=== PATIENT | female | born 1950 | race Caucasian/White ===

== ENCOUNTER 2020-01-06 13:27 | Emergency (ER) | payer MEDICARE, MEDICAID, SELFPAY ==
[2020-01-06 14:20] VITALS: BP 158/90; PULSE 68; RESP 16; TEMP 36.7; O2SAT 97
--- NOTE | 2020-01-06 14:57 | ED.EAR ---
HPI - Ear Problem General Chief complaint: Ear Stated complaint: earring back stuck in L ear Source: patient Mode of arrival: ambulatory History of Present Illness HPI Narrative: this is a 69-year-old female who presents with some the back part of her earring lodged into her left posterior ear lobe after she inadvertently dislodged the the front of the ear ring but the posterior aspect remained in the posterior left ear lobe currently there is some swelling redness and erythema with some pustular and blood next discharge. Currently no fever or chills. MD Complaint: ear pain, ear discharge and foreign body Location: left ear Duration: constant Severity: mild Relieving factors: nothing Exacerbating factors: nothing Discharge from ear: Reports yes - purulent Related Data Home Medications Medication Instructions Recorded Confirmed bupropion HCl 450 mg PO DAILY 01/06/20 01/06/20 gabapentin 300 mg PO HS 01/06/20 01/06/20 Allergies Allergy/AdvReac Type Severity Reaction Status Date / Time Sulfa (Sulfonamide Allergy Itching Verified 01/06/20 14:20 Antibiotics) indomethacin AdvReac Unknown Verified 01/06/20 14:20 NSAIDS (Non-Steroidal AdvReac Unknown Verified 01/06/20 14:20 Anti-Inflamma tramadol AdvReac Unknown Verified 01/06/20 14:20 Review of Systems Review of Systems: All systems reviewed & are unremarkable except as noted in HPI and below PMFSH Past Medical History Medical History History of neuropathy Exam Const: General: no acute distress Orientation/consciousness: patient oriented x3 HENMT: Head: normal to inspection Eyes: Conjunctivae: conjunctivae normal Pupils: Equal, round and reactive pupils present Neck: Neck: normal visual inspection Chest: Chest palpation & inspection: normal inspection of the chest Resp: Effort & Inspection: normal respiratory effort Auscultation: clear to auscultation bilaterally GI: Auscultation: normal bowel sounds Skin: Other: posterior aspect of the earring lodge into posterior left ear lobe with some some mild drainage and erythema and swelling. Course Course Emergency Course: The earring was removed with forceps and drainage was cultured. Vital Signs Vital signs: Vital Signs Temperature 36.7 C 01/06/20 14:20 Pulse Rate 68 01/06/20 14:20 Respiratory Rate 16 01/06/20 14:20 Blood Pressure 158/90 H 01/06/20 14:20 Pulse Oximetry 97 01/06/20 14:20 Temperature 36.7 C 01/06/20 14:20 Pulse Rate 68 01/06/20 14:20 Respiratory Rate 16 01/06/20 14:20 Blood Pressure 158/90 H 01/06/20 14:20 Pulse Oximetry 97 01/06/20 14:20 Procedures FB Removal Ear Foreign Body #1: Foreign Body Removal Date: 01/06/20 Foreign Body Removal Time: 15:01 Location: ear canal (L) ( Posterior ear ring lodged in posterior left ear lobe that was removed) Medical Decision Making Vital Signs Vital Signs: Vital Signs Temperature 36.7 C 01/06/20 14:20 Pulse Rate 68 01/06/20 14:20 Respiratory Rate 16 01/06/20 14:20 Blood Pressure 158/90 H 01/06/20 14:20 Pulse Oximetry 97 01/06/20 14:20 Temperature 36.7 C 01/06/20 14:20 Pulse Rate 68 01/06/20 14:20 Respiratory Rate 16 01/06/20 14:20 Blood Pressure 158/90 H 01/06/20 14:20 Pulse Oximetry 97 01/06/20 14:20 Critical Care Time Critical Care Time Critical Care Time: No Discharge Plan Discharge Clinical Impression: Foreign body entering through skin Qualifiers: Encounter type: initial encounter Qualified Code(s): W45.8XXA - Other foreign body or object entering through skin, initial encounter Patient Disposition: Home, Self-Care Condition: Stable Instructions: Antibiotic Form Additional Instructions: take medicine as prescribed, can use Neosporin to affected area daily x4 days, and follow with primary care physician if symptoms persist or worsen. Prescriptions: N
[2020-01-06 15:10] VITALS: RESP 16
== END 2020-01-06 15:10 | disposition home or self-care (01) ==
PROVIDERS: Emergency Provider Emergency Medicine; PCP Family Medicine
DX: S01.342A Puncture wound with foreign body of left ear, initial encounter (principal); W45.8XXA Other foreign body or object entering through skin, initial encounter
CPT/HCPCS: 87070; 87077; 87186; 87205; 99283

== ENCOUNTER 2020-03-24 18:11 | Emergency (ER) | payer MEDICARE, MEDICAID, SELFPAY ==
--- NOTE | ~2020-03-24 | CT_ITS ---
EXAMINATION: CT brain wo con INDICATION: Head injury COMPARISON: None TECHNIQUE: Standard unenhanced head CT. The dose-length product (DLP) was 605.33 mGy-cm. The mA was a djusted according to patient size. Iterative reconstruction technique was employed. FINDINGS: A frontal scalp hematoma is present. There is no intracranial hemorrhage, acute infarction, or abnormal mass lesion. The ventricles are normal. There is no abnormal mass effect or midline shif t. The johnson-white matter differentiation is normal. The basal cisterns are patent. The orbits are nor mal. There is moderate opacification of the maxillary sinuses. IMPRESSION: 1. No acute intracranial abnormality. Reviewed, dictated and finalized at location A. [employer]
[2020-03-24 18:15] VITALS: BP 120/92; PULSE 68; RESP 14; TEMP 36.6; O2SAT 97
--- NOTE | 2020-03-24 18:54 | ED_ITS ---
HPI - Wound/Laceration General Chief Complaint: Wound/Laceration Stated Complaint: face injury Time Seen by Provider: 03/24/20 18:54 Source: patient Mode of arrival: ambulatory Limitations: no limitations Related Data Home Medications Medication Instructions Recorded Confirmed albuterol sulfate [ProAir HFA] 2 puff INHALATION QID PRN 03/24/20 03/24/20 bupropion HCl 300 mg PO DAILY 03/24/20 03/24/20 cyclobenzaprine 10 mg PO HS PRN 03/24/20 03/24/20 estradiol 1 mg PO DAILY 03/24/20 03/24/20 gabapentin 300 mg PO HS 03/24/20 03/24/20 Allergies Allergy/AdvReac Type Severity Reaction Status Date / Time Sulfa (Sulfonamide Allergy Itching Verified 01/06/20 14:20 Antibiotics) indomethacin AdvReac Unknown Verified 01/06/20 14:20 NSAIDS (Non-Steroidal AdvReac Unknown Verified 01/06/20 14:20 Anti-Inflamma tramadol AdvReac Unknown Verified 01/06/20 14:20 [facility] Past Medical History Medical History (Updated 01/07/20 @ 00:00 by Background Jason) History of neuropathy Course Vital Signs Vital signs: Vital Signs Temperature 36.6 C 03/24/20 18:15 Pulse Rate 68 03/24/20 18:15 Respiratory Rate 14 03/24/20 18:15 Blood Pressure 120/92 H 03/24/20 18:15 Pulse Oximetry 97 03/24/20 18:15 Temperature 36.6 C 03/24/20 18:15 Pulse Rate 68 03/24/20 18:15 Respiratory Rate 14 03/24/20 18:15 Blood Pressure 120/92 H 03/24/20 18:15 Pulse Oximetry 97 03/24/20 18:15 Discharge Plan Discharge Prescriptions: No Action cyclobenzaprine 10 mg Tablet 10 mg PO HS PRN (Reason: Pain) RF: 0 estradiol 1 mg tablet 1 mg PO DAILY RF: 0 gabapentin 300 mg capsule 300 mg PO HS RF: 0 albuterol sulfate [ProAir HFA] 90 mcg/actuation Hfa Aerosol Inhaler 2 puff INHALATION QID PRN (Reason: Shortness Of Breath) RF: 0 bupropion HCl 300 mg tablet extended release 24 hr 300 mg PO DAILY RF: 0
--- NOTE | 2020-03-24 19:05 | ED.HEATRA ---
HPI - Head Injury General Chief complaint: Wound/Laceration Stated complaint: face injury Time Seen by Provider: 03/24/20 18:54 Source: patient and family Mode of arrival: ambulatory Limitations: no limitations History of Present Illness HPI Narrative: 69-year-old woman comes in today complaining of bleeding from the bridge of her nose after she fell this evening. She was walking over uneven ground and tripped, falling forward onto her face. She denies loss of consciousness and denies any other injury other than some mild discomfort in her right anterior knee. She states that she had 2 alcoholic drinks this evening. she denies history of prior significant head injury, seizures, and use of blood thinners. MD Complaint: head injury Onset (ago): hour(s) (1) Mechanism of Injury: fall Place: outdoors Loss of Consciousness: no Location of injury: face Severity: mild Quality: sharp Radiation: none Other Injuries: lower extremity Associated symptoms: denies other symptoms Related Data Home Medications Medication Instructions Recorded Confirmed albuterol sulfate [ProAir HFA] 2 puff INHALATION QID PRN 03/24/20 03/24/20 bupropion HCl 300 mg PO DAILY 03/24/20 03/24/20 cyclobenzaprine 10 mg PO HS PRN 03/24/20 03/24/20 estradiol 1 mg PO DAILY 03/24/20 03/24/20 gabapentin 300 mg PO HS 03/24/20 03/24/20 Allergies Allergy/AdvReac Type Severity Reaction Status Date / Time Sulfa (Sulfonamide Allergy Itching Verified 01/06/20 14:20 Antibiotics) indomethacin AdvReac Unknown Verified 01/06/20 14:20 NSAIDS (Non-Steroidal AdvReac Unknown Verified 01/06/20 14:20 Anti-Inflamma tramadol AdvReac Unknown Verified 01/06/20 14:20 Review of Systems Constitutional: Constitutional: Denies chills and Denies fever(s) Eyes: Eyes: Denies change in vision and Denies photophobia ENT: Denies dysphagia, Denies nasal congestion and Denies sore throat Cardiovascular: Cardiovascular: Denies chest pain and Denies radiating jaw, neck or arm pain Respiratory: Respiratory: Denies cough, Denies dyspnea and Denies wheezing Gastrointestinal: Gastrointestinal: Denies abdominal pain, Denies nausea and Denies vomiting Musculoskeletal: Musculoskeletal: Reports as per HPI, Reports arthralgias and Denies joint swelling Integumentary/Breasts: Skin/Breast: Denies pruritus, Denies erythema and Denies rash Neurologic: Denies vertigo, Denies dizziness and Denies syncope Hematologic/Lymphatic: Hematologic/Lymphatic: Denies easy bleeding and Denies easy bruising Allergic/Immunologic: Allergic/Immunologic: Denies lip swelling and Denies tongue swelling PMFSH Past Medical History Medical History (Updated 03/24/20 @ 19:24 by Dong Hogan MD) Anxiety Chronic back pain Depression History of neuropathy Hypertension Surgical History Surgical History (Updated 03/24/20 @ 19:16 by Dong Hogan MD) H/O knee surgery H/O: hysterectomy History of back surgery Social History Social History (Updated 03/24/20 @ 19:17 by Dong Hogan MD) Smoking status: Current every day smoker Alcohol intake: current Substance use: never Living arrangements: with family Exam Const: General: healthy appearing and alert Orientation/consciousness: patient oriented x3 Limitations: no limitations Other: Mild acute distress HENMT: Head: normal to inspection Ears: external ears normal, TM's normal bilaterally and EAC's normal General nose exam: Normal nares present Mouth: Yes moist mucous membranes Throat: posterior oropharynx normal Other: 1.5 cm median sagittal laceration over the bridge of the nose. There is modest bleeding. She has no tenderness palpation of the nasal bones and the septum is midline and there is no bleeding from the nares or septal swelling. there are superficial abrasions over the remainder of the nose distally as well as mild abrasion on the upper lip. Eyes: Conjunctivae: conjunctivae normal Pupils: Equal
[2020-03-24 19:55] VITALS: BP 120/79; PULSE 81; RESP 14; O2SAT 99
== END 2020-03-24 19:55 | disposition home or self-care (01) ==
PROVIDERS: Emergency Provider Emergency Medicine; PCP Family Medicine
DX: S09.90XA Unspecified injury of head, initial encounter (principal); S01.21XA Laceration without foreign body of nose, initial encounter; W19.XXXA Unspecified fall, initial encounter
CPT/HCPCS: 12011; 70450; 99282; 99284

== ENCOUNTER 2020-11-02 14:04 | Outpatient (RCR) | payer MEDICARE, MEDICAID, SELFPAY ==
--- NOTE | 2020-11-02 14:40 | PTOPEVAL ---
Thank you for referring Ann Chu to [facility].? The patient is scheduled to be seen for therapy? __2__x/week for 8 visits. Please review, sign, date and return this plan of care FLORENCIO. I agree with and certify that the following plan of care is medically necessary. Referring Physician Date Admitting Provider: Attending Provider: lizeth diaz Referring Provider: *PT Outpatient Evaluation Start: 11/02/20 14:10 Freq: Status: Active Protocol: Document 11/02/20 14:00 SRIRAM (Rec: 11/02/20 14:37 [id number]) Therapy Assessment Status Assessment Status Assessment Status Evaluation Outpatient Past Medical History Respiratory History Hx Pneumonia Yes Musculoskeletal History Hx Arthritis Yes Hx Other Musculoskeletal Disorders Yes: HAND, KNEE SURGERY Reproductive History Hx Post Menopausal Yes Psychosocial History Hx Depression Yes Other History Hx Cancer Yes: UTERUS, CERXIX Evaluation Information Problem Diagnosis right foot pain, contracture of joint of right foot Onset 09/05/20 Subjective Information Pt. reports that she underwent Query Text:As Reported By Patient/ surgery for her toes on 09/05/ Family 21. Pt. reports that her toes were beginning to curl. She states that she had pins placed in the 2nd and 3rd toe. She reports she also had her calf cut to help lengthen it. She reports she is bracing the toes at night. She states that since surgery walking has become difficult. She reports her walking has become slower. She states that she walks with a limp and it is difficult to place weight through the right foot. Prior Level of Function Activity Level (Last 3 Months) Occupation retired Hand Dominance Right Activity of Daily Living Ability Independent Indoor/Home Mobility Independent Community Mobility Independent Stairs Ability Independent Functional Cognition (Planning, Shopping Independent , Taking Medications) Cooking Yes Cleaning Yes Laundry Yes Shopping Yes Driving Yes Comments Additional Prior Level of Function Pt. lives alone.
--- NOTE | 2020-12-12 06:43 | PCPTNOTE ---
Mrs. Chu attended a total of 7 treatment sessions from 11/02/20 to 11/23/20. She has failed to return to the clinic and will be discharged from our care. Refer to the pt. last Rx note for discharge status. Zeus Marley, MPT
== END 2020-11-23 09:39 | disposition home or self-care (01) ==
LOC: CHSPT 14:04
DX: M79.671 Pain in right foot (principal); M24.574 Contracture, right foot
CPT/HCPCS: 97014; 97110; 97140; 97161; G0283

== ENCOUNTER 2021-06-22 15:07 | Emergency (ER) | payer MEDICARE, MEDICAID, SELFPAY | END 2021-06-22 15:08 | disposition left against medical advice (07) | LOC: CHSED 15:11 | PROVIDERS: Emergency Provider Family Medicine; PCP Family Medicine | DX: Z04.9 Encounter for examination and observation for unspecified reason (principal) | CPT/HCPCS: 99199 ==

== ENCOUNTER 2021-07-06 19:14 | Emergency (ER) | payer MEDICARE, MEDICAID, SELFPAY ==
[2021-07-06 19:21] VITALS: BP 169/89; PULSE 73; RESP 18; TEMP 35.9; O2SAT 98
[2021-07-06] MEDS: HYDROcodone/acetaminophen (*CRX) 5-325 MG TABLET 1 TAB PO (19:59)
[2021-07-06] MEDS: AMOXICILLIN/CLAVULANATE K 875-125 MG TAB 1 TABLET PO (19:59)
[2021-07-06] MEDS: KETOROLAC 30 MG/ML VIAL (*BKC) IM (20:01)
--- NOTE | 2021-07-06 20:01 | ED.GENADULT ---
HPI - General Adult General Chief complaint: Dental/Oral Stated complaint: tooth pain Source: patient Mode of arrival: ambulatory Limitations: no limitations History of Present Illness HPI narrative: Ann is a 70F with a PMH of chronic back pain, depression and HTN that presented to the emergency department with dental pain. Her right lower molars have been getting worse for the last few days. She was unable to get into her dentist or primary care physician and was referred here. There has been no trouble swallowing, breathing and no fevers or chills. Related Data Home Medications Medication Instructions Recorded Confirmed albuterol sulfate [ProAir HFA] 2 puff INHALATION QID PRN 03/24/20 03/24/20 bupropion HCl 300 mg PO DAILY 03/24/20 03/24/20 cyclobenzaprine 10 mg PO HS PRN 03/24/20 03/24/20 estradiol 1 mg PO DAILY 03/24/20 03/24/20 gabapentin 300 mg PO HS 03/24/20 03/24/20 Allergies Allergy/AdvReac Type Severity Reaction Status Date / Time Sulfa (Sulfonamide Allergy Itching Verified 07/06/21 19:52 Antibiotics) indomethacin AdvReac Unknown Verified 07/06/21 19:52 NSAIDS (Non-Steroidal AdvReac Unknown Verified 07/06/21 19:52 Anti-Inflamma tramadol AdvReac Unknown Verified 07/06/21 19:52 Review of Systems Constitutional: Constitutional: Reports no additional constitutional complaints Eyes: Eyes: Reports no additional eye complaints ENT: Reports system reviewed and no additional complaints, except as documented Cardiovascular: Cardiovascular: Reports no additional cardiovascular complaints Respiratory: Respiratory: Reports no additional respiratory complaints Gastrointestinal: Gastrointestinal: Reports no additional gastrointestinal complaints Genitourinary: Genitourinary: Reports no additional female genitourinary complaints Musculoskeletal: Musculoskeletal: Reports no additional musculoskeletal complaints Integumentary/Breasts: Skin/Breast: Reports system reviewed and no additional complaints, except as docu Neurologic: Reports system reviewed and no additional complaints, except as documented Psychiatric: Psychiatric: Reports no additional psychiatric complaints Endocrine: Endocrine: Reports no additional endocrine complaints Hematologic/Lymphatic: Hematologic/Lymphatic: Reports no additional hematologic/lymphatic complaints Allergic/Immunologic: Allergic/Immunologic: Reports no additional allergic/immunologic complaints [facility] Past Medical History Medical History Anxiety Chronic back pain Depression History of neuropathy Hypertension Surgical History Surgical History H/O knee surgery H/O: hysterectomy History of back surgery Social History Social History Smoking status: Current every day smoker Alcohol intake: current Substance use: never Exam Const: General: no acute distress and alert Orientation/consciousness: patient oriented x3 Limitations: No altered mental status HENMT: Head: normal to inspection Mouth: Yes Normal oral and palatal mucosa present Other: Right lower molar was very TTP but had no visible abscess Eyes: Conjunctivae: conjunctivae normal Pupils: Equal, round and reactive pupils present Neck: Neck: normal visual inspection Chest: Chest palpation & inspection: normal inspection of the chest Resp: Effort & Inspection: normal respiratory effort and not tachypneic Auscultation: clear to auscultation bilaterally Cardio: Rate: regular rate GI: Inspection: non-distended GI Palp: Yes Soft to palpation, No Tenderness to palpation present (GI) and No Guarding due to palpation present (GI) Skin: General skin exam: normal color Rashes: no rashes Neuro: General: patient oriented x3 Extrem: General: normal to inspection Psych: Mental Status: mental status grossly normal Cour
== END 2021-07-06 20:27 | disposition home or self-care (01) ==
PROVIDERS: Emergency Provider Family Medicine; PCP Family Medicine
DX: K08.89 Other specified disorders of teeth and supporting structures (principal)
CPT/HCPCS: 96372; 99283; A9270; J1885

== ENCOUNTER 2021-07-07 15:03 | Emergency (ER) | payer MEDICARE, MEDICAID, SELFPAY ==
--- NOTE | 2021-07-07 15:35 | ED.DENTAL ---
HPI - Dental/Oral General Chief complaint: Dental/Oral Stated complaint: tooth pain Time Seen by Provider: 07/07/21 15:35 Source: patient Mode of arrival: ambulatory History of Present Illness HPI Narrative: 70-year-old female a history of hypertension, chronic low back pain presented to the ER yesterday for right lower jaw pain/dental pain. The patient received Toradol and [place] 10/325. She was discharged home on Augmentin and [place] 5/11666 tablets. She presents to the ER with ongoing right lower dental pain without any relief. She is scheduled to see the dentist on Friday. MD Complaint: tooth pain Location: Tooth # (30) Onset (ago): day(s) Duration: constant Severity: severe Relieving factors: nothing Exacerbating factors: cold and heat Context: history of dental caries Treatment prior to arrival: oral analgesic Related Data Home Medications Medication Instructions Recorded Confirmed albuterol sulfate [ProAir HFA] 2 puff INHALATION QID PRN 03/24/20 07/07/21 bupropion HCl 300 mg PO DAILY 03/24/20 07/07/21 cyclobenzaprine 10 mg PO HS PRN 03/24/20 07/07/21 estradiol 1 mg PO DAILY 03/24/20 07/07/21 gabapentin 300 mg PO HS 03/24/20 07/07/21 Allergies Allergy/AdvReac Type Severity Reaction Status Date / Time Sulfa (Sulfonamide Allergy Itching Verified 07/06/21 19:52 Antibiotics) indomethacin AdvReac Unknown Verified 07/06/21 19:52 naproxen AdvReac Unknown Verified 07/07/21 15:43 tramadol AdvReac Unknown Verified 07/06/21 19:52 Review of Systems Review of Systems: All systems reviewed & are unremarkable except as noted in HPI and below Constitutional: Constitutional: Reports as per HPI and Reports no additional constitutional complaints Eyes: Eyes: Reports as per HPI and Reports no additional eye complaints ENT: Reports system reviewed and no additional complaints, except as documented Comments: Extensive dental caries. Right lower jaw pain Cardiovascular: Cardiovascular: Reports as per HPI and Reports no additional cardiovascular complaints Respiratory: Respiratory: Reports as per HPI and Reports no additional respiratory complaints Gastrointestinal: Gastrointestinal: Reports as per HPI and Reports no additional gastrointestinal complaints Genitourinary: Genitourinary: Reports no additional female genitourinary complaints and Reports as per HPI Musculoskeletal: Musculoskeletal: Reports no additional musculoskeletal complaints and Reports as per HPI Comments: status post right big toe surgery with ongoing pain Integumentary/Breasts: Skin/Breast: Reports system reviewed and no additional complaints, except as docu Neurologic: Reports system reviewed and no additional complaints, except as documented and Reports as per HPI Psychiatric: Psychiatric: Reports no additional psychiatric complaints and Reports as per HPI Endocrine: Endocrine: Reports no additional endocrine complaints Hematologic/Lymphatic: Hematologic/Lymphatic: Reports no additional hematologic/lymphatic complaints Allergic/Immunologic: Allergic/Immunologic: Reports no additional allergic/immunologic complaints PMFSH Past Medical History Medical History Anxiety Chronic back pain Depression History of neuropathy Hypertension Surgical History Surgical History H/O knee surgery H/O: hysterectomy History of back surgery Social History Social History Smoking status: Current every day smoker Alcohol intake: current Substance use: never Exam Const: General: no acute distress and alert Orientation/consciousness: patient oriented x3 HENMT: Head: normal to inspection Other: Number 30 is carious with dental filling. Tooth is tender on palpation. Extensive dental caries involving all molars on both sides and upper and lower. Eyes: Conjunctivae:
[2021-07-07 15:45] VITALS: BP 138/84; PULSE 65; RESP 16; TEMP 36.3
[2021-07-07] MEDS: HYDROcodone/acetaminophen (*CRX) 10-325 MG TABLET 1 TAB PO (16:00)
--- NOTE | 2021-07-07 16:01 | PC.NURSE ---
RN medicated pt per ERP order and was preparing for discharge when pt asks about toradol shot. Pt informed that ERP stated he is not comfortable giving pt toradol since she has an allergy to naproxen. Pt states that she was given toradol yesterday. Pt informed that ERP is aware of that, but did not order toradol at this time. Pt and visitor very upset, wanting to speak with ERP again. ERP aware.
[2021-07-07 16:10] VITALS: BP 159/99; PULSE 64; RESP 16; O2SAT 96
== END 2021-07-07 16:12 | disposition home or self-care (01) ==
PROVIDERS: Emergency Provider Internal Medicine Critical Care Medicine; PCP Family Medicine
DX: K08.89 Other specified disorders of teeth and supporting structures (principal); K02.9 Dental caries, unspecified
CPT/HCPCS: 99283; A9270

== ENCOUNTER 2021-11-13 23:12 | Emergency (ER) | payer MEDICARE, MEDICAID, SELFPAY ==
[2021-11-13 23:12] VITALS: BP 136/79; PULSE 67; RESP 16; TEMP 36.6; O2SAT 98
--- NOTE | 2021-11-13 23:31 | ED.SKABFB ---
HPI - Skin/Abscess/Foreign Bdy General Stated complaint: wasp sting Time Seen by Provider: 11/13/21 23:31 Source: patient History of Present Illness HPI narrative: 70-year-old female with a history of anxiety /depression, hypertension, chronic back pain presented to the ER -- multiple wasp bites on the back of her right hand at noon today. she has had a prior history of bee stings without any major allergic reaction. -- The patient has swelling over the back of right hand along with itching. No shortness of breath, tongue or throat swelling, abdominal pain, generalized skin rash or lightheadedness. Patient is hemodynamically stable. MD complaint: rash Onset (ago): hour(s) ( 11 hours ago) Tetanus up to date: no Location: R hand Severity: mild Quality: pruritic Pain Consistency: constant Relieving factors: none Exacerbating factors: none Associated symptoms: denies other symptoms Treatments prior to arrival: Benadryl Related Data Home Medications Medication Instructions Recorded Confirmed albuterol sulfate 90 mcg/actuation 2 puff inhalation QID PRN 03/24/20 07/07/21 aerosol inhaler (ProAir HFA) Shortness Of Breath bupropion HCl 300 mg 24 hr tablet, 300 mg PO DAILY 03/24/20 07/07/21 extended release cyclobenzaprine 10 mg tablet 10 mg PO HS PRN Pain 03/24/20 07/07/21 estradiol 1 mg tablet 1 mg PO DAILY 03/24/20 07/07/21 gabapentin 300 mg capsule 300 mg PO HS 03/24/20 07/07/21 Allergies Allergy/AdvReac Type Severity Reaction Status Date / Time Sulfa (Sulfonamide Allergy Itching Verified 07/06/21 19:52 Antibiotics) indomethacin AdvReac Unknown Verified 07/06/21 19:52 naproxen AdvReac Unknown Verified 07/07/21 15:43 tramadol AdvReac Unknown Verified 07/06/21 19:52 Review of Systems Review of Systems: All systems reviewed & are unremarkable except as noted in HPI and below Constitutional: Constitutional: Reports as per HPI and Reports no additional constitutional complaints Eyes: Eyes: Reports as per HPI and Reports no additional eye complaints ENT: Reports system reviewed and no additional complaints, except as documented and Reports as per HPI Cardiovascular: Cardiovascular: Reports as per HPI and Reports no additional cardiovascular complaints Respiratory: Respiratory: Reports as per HPI and Reports no additional respiratory complaints Gastrointestinal: Gastrointestinal: Reports as per HPI and Reports no additional gastrointestinal complaints Genitourinary: Genitourinary: Reports no additional female genitourinary complaints and Reports as per HPI Musculoskeletal: Musculoskeletal: Reports no additional musculoskeletal complaints and Reports as per HPI Integumentary/Breasts: Comments: redness over the back of her right hand with itching Neurologic: Reports system reviewed and no additional complaints, except as documented and Reports as per HPI Psychiatric: Psychiatric: Reports no additional psychiatric complaints and Reports as per HPI Endocrine: Endocrine: Reports no additional endocrine complaints and Reports as per HPI Hematologic/Lymphatic: Hematologic/Lymphatic: Reports no additional hematologic/lymphatic complaints and Reports as per HPI Allergic/Immunologic: Allergic/Immunologic: Reports no additional allergic/immunologic complaints and Reports as per HPI PMFSH Past Medical History Medical History Anxiety Chronic back pain Depression History of neuropathy Hypertension Surgical History Surgical History H/O knee surgery H/O: hysterectomy History of back surgery Social History Social History Smoking status: Current every day smoker Alcohol intake: current Substance use: never Exam Const: General: no acute distress Orientation/consciousness: patient oriented x3 Limitations: no limitations [facility]
[2021-11-14 00:16] VITALS: BP 135/69; PULSE 60; RESP 16; O2SAT 96
[2021-11-14] MEDS: methylPREDNISolone SOD SUCC 125 MG VIAL IM (00:16)
== END 2021-11-14 00:21 | disposition home or self-care (01) ==
PROVIDERS: Emergency Provider Internal Medicine Critical Care Medicine
DX: T63.461A Toxic effect of venom of wasps, accidental (unintentional), initial encounter (principal); T78.49XA Other allergy, initial encounter
CPT/HCPCS: 96372; 99283; J2930

== ENCOUNTER 2022-05-08 13:52 | Emergency (ER) | payer MEDICARE, MEDICAID, SELFPAY ==
[2022-05-08 13:53] VITALS: BP 153/71; PULSE 70; RESP 16; TEMP 36.8; O2SAT 100
--- NOTE | 2022-05-08 14:05 | ED.GENADULT ---
HPI - General Adult General Chief complaint: Nausea/Vomiting/Diarrhea Stated complaint: dehydration Time Seen by Provider: 05/08/22 13:54 Source: patient and RN notes reviewed Mode of arrival: ambulatory Limitations: no limitations History of Present Illness HPI narrative: patient states that yesterday she had some vomiting. She has been having symptoms for about 3 days of nausea. She has not vomited today. She has been drinking fluids today and keeping them down. She urinated today. She thinks that she is dehydrated because change in her skin turgor. She said that she read online that if she pulls up her skin and it does not go back down that she is dehydrated. She also states that her skin has been itchy for about a week and she has used multiple lotions and creams but it still remains dry and she usually has oily skin. She denies any sore throat, cough, fever chills, diarrhea. complaint: Possible dehydration Onset (ago): day(s) (3) Severity: mild Associated symptoms: denies other symptoms Treatments prior to arrival: none Related Data Home Medications Medication Instructions Recorded Confirmed albuterol sulfate 90 mcg/actuation 2 puff inhalation QID PRN 03/24/20 07/07/21 aerosol inhaler (ProAir HFA) Shortness Of Breath bupropion HCl 300 mg 24 hr tablet, 300 mg PO DAILY 03/24/20 07/07/21 extended release estradiol 1 mg tablet 1 mg PO DAILY 03/24/20 07/07/21 gabapentin 300 mg capsule 300 mg PO HS 03/24/20 07/07/21 lorazepam 0.5 mg tablet 0.5 mg PO DIRECTED PRN Anxiety 05/08/22 05/08/22 Allergies Allergy/AdvReac Type Severity Reaction Status Date / Time Sulfa (Sulfonamide Allergy Itching Verified 11/14/21 00:22 Antibiotics) indomethacin AdvReac Unknown Verified 11/14/21 00:22 naproxen AdvReac Unknown Verified 11/14/21 00:22 tramadol AdvReac Unknown Verified 11/14/21 00:22 Review of Systems Review of Systems: All systems reviewed & are unremarkable except as noted in HPI and below PMFSH Past Medical History Medical History Anxiety Chronic back pain Depression History of neuropathy Hypertension Surgical History Surgical History H/O knee surgery H/O: hysterectomy History of back surgery Social History Social History Smoking status: Current every day smoker Alcohol intake: current Substance use: never Living arrangements: with family Exam Const: General: healthy appearing, no acute distress and alert Nutritional Appearance: well nourished Orientation/consciousness: patient oriented x3 Limitations: no limitations HENMT: Head: normal to inspection Ears: external ears normal Face/Nose/Sinus: Normal external nose present Face and sinus: normal facial exam Mouth: Yes moist mucous membranes Eyes: Conjunctivae: conjunctivae normal Pupils: Equal, round and reactive pupils present EOM: EOMs intact bilaterally Neck: Neck: normal visual inspection Resp: Effort & Inspection: normal respiratory effort Auscultation: clear to auscultation bilaterally Cardio: Rate: regular rate Rhythm: regular rhythm GI: GI Palp: Yes Soft to palpation and No Tenderness to palpation present (GI) Auscultation: normal bowel sounds Back/Spine/Pelvis: Cervical Spine: cervical ROM normal Thoracic/Lumbar Spine: thoraco-lumbar ROM normal Skin: General skin exam: normal color, elasticity normal and turgor normal Rashes: no rashes Neuro: General: patient oriented x3, moves all extremities, no focal motor deficits and CN's II-XI intact bilaterally Speech: normal speech Gait exam (Neuro): Normal gait present Extrem: General: normal to inspection and no clubbing, cyanosis or edema Psych: Mental Status: mental status grossly normal Affect: Anxious affect present Attitude: cooperative Course Vital Signs Vital signs: Vital Signs Tem
[2022-05-08 14:20] LABS: Basophils Absolute Auto 0.04 K/mm3 (0.00-0.10); Basophils Percent Auto 0.7 % (0.0-1.0); Eosinophils Absolute Auto 0.09 K/mm3 (0.02-0.50); Eosinophils Percent Auto 1.7 % (1.0-6.0); Hematocrit 38.8 % (35.0-42.0); Hemoglobin 12.8 g/dL (11.7-13.8); Immature Granulocyte Absolute 0.01 K/mm3 (0.00-0.00); Immature Granulocyte Percent A 0.2 % (0.0-0.0); Lymphocytes Absolute Auto 1.93 K/mm3 (1.10-4.50); Lymphocytes Percent Auto 35.5 % (18.0-42.0); Mean Corpuscular Hemoglobin 29.2 pg (27.0-31.0); Mean Corpuscular Volume 88.6 fL (78.0-102.0); Mean Platelet Volume 9.6 fl (9.2-11.8); Monocytes Absolute Auto 0.49 K/mm3 (0.10-0.90); Neutrophils Absolute Auto 2.9 K/mm3 (1.7-7.2); Neutrophils Percent Auto 52.9 % (50.0-70.0); Platelet Count Result 349 K/mm3 (150-420); Red Blood Count 4.38 M/mm3 (4.20-5.40); Red Cell Distribution Width 11.9 % (11.6-14.4); White Blood Count 5.4 K/mm3 (4.8-10.8)
--- NOTE | 2022-05-08 14:23 | PC.NURSE ---
RN in room with dr morrow during eval.
[2022-05-08 14:35] LABS: Alanine Aminotransferase 25 U/L (14-59); Albumin Level 3.8 g/dL (3.4-5.0); Alkaline Phosphatase 70 U/L (46-116); Anion Gap 9 mmol/L (8-16); Aspartate Amino Transferase 15 U/L (15-37); Bilirubin,Total 0.3 mg/dL (0.00-1.00); Blood Urea Nitrogen 17 mg/dL (7-18); Carbon Dioxide 28 mmol/L (21-32); Chloride 102 mmol/L (98-108); Estimated CRCL calculation 35 ml/min; Estimated Glomerular Filt Rate 48; Glucose 111 mg/dL (70-99); Magnesium 1.8 mg/dL (1.8-2.4); Osmolality Calculated 290 mOsm/kg (285-295); Sodium 139 mmol/L (136-145); Total Protein 7.1 g/dL (6.4-8.2)
[2022-05-08 14:55] LABS: Influenza A QL RT-PCR Negative (Negative); Influenza B QL RT-PCR Negative (Negative); SARS-CoV-2 RNA PCR Negative (Negative)
[2022-05-08 15:12] VITALS: BP 123/70; PULSE 68; RESP 16; TEMP 36.7; O2SAT 97
== END 2022-05-08 15:15 | disposition home or self-care (01) ==
PROVIDERS: Emergency Provider Emergency Medicine; PCP Family Medicine
DX: A08.4 Viral intestinal infection, unspecified (principal); I10 Essential (primary) hypertension; F41.9 Anxiety disorder, unspecified; F32.A Depression, unspecified; F17.200 Nicotine dependence, unspecified, uncomplicated; Z20.822 Contact with and (suspected) exposure to COVID-19
CPT/HCPCS: 36415; 80053; 83735; 85025; 87502; 99283; U0003; U0005

== ENCOUNTER 2022-10-10 17:01 | Emergency (ER) | payer MEDICARE, MEDICAID, SELFPAY ==
[2022-10-10 17:01] VITALS: BP 131/78; PULSE 60; RESP 17; TEMP 36.9; O2SAT 97
--- NOTE | 2022-10-10 17:16 | ED.WOUNDLAC ---
HPI - Wound/Laceration General Chief Complaint: Wound/Laceration Stated Complaint: wasp sting Time Seen by Provider: 10/10/22 17:15 Source: patient and family Mode of arrival: ambulatory Limitations: no limitations History of Present Illness HPI narrative: this is a 71-year-old female that presents after she was stung by a wasp yesterday her right hand anterior surface as punctate lesion with swelling and inflammation with no anaphylactic reaction no shortness of breath no audible wheezing does have some nausea with no vomiting no abdominal pain no fever chills. Onset (ago): day(s) Extremity Location: Right: hand ( swelling) Patient tetanus UTD: No Related Data Home Medications Medication Instructions Recorded Confirmed albuterol sulfate 90 mcg/actuation 2 puff inhalation QID PRN 03/24/20 05/08/22 aerosol inhaler (ProAir HFA) Shortness Of Breath bupropion HCl 300 mg 24 hr tablet, 450 mg PO DAILY 03/24/20 05/08/22 extended release estradiol 1 mg tablet 1 mg PO DAILY 03/24/20 05/08/22 gabapentin 300 mg capsule 300 mg PO HS 03/24/20 05/08/22 lorazepam 0.5 mg tablet 0.5 mg PO DIRECTED PRN Anxiety 05/08/22 05/08/22 Allergies Allergy/AdvReac Type Severity Reaction Status Date / Time Sulfa (Sulfonamide Allergy Itching Verified 11/14/21 00:22 Antibiotics) indomethacin AdvReac Unknown Verified 11/14/21 00:22 naproxen AdvReac Unknown Verified 11/14/21 00:22 tramadol AdvReac Unknown Verified 11/14/21 00:22 Review of Systems Review of Systems: All systems reviewed & are unremarkable except as noted in HPI and below PMFSH Past Medical History Medical History Anxiety Chronic back pain Depression History of neuropathy Hypertension Surgical History Surgical History H/O knee surgery H/O: hysterectomy History of back surgery Social History Social History Smoking status: Current every day smoker Alcohol intake: current Substance use: never Living arrangements: with family Exam Const: General: healthy appearing Nutritional Appearance: well nourished Orientation/consciousness: patient oriented x3 Limitations: no limitations Eyes: Conjunctivae: conjunctivae normal Pupils: Equal, round and reactive pupils present Neck: Neck: normal visual inspection Chest: Chest palpation & inspection: normal inspection of the chest Resp: Effort & Inspection: normal respiratory effort Auscultation: clear to auscultation bilaterally Cardio: Rate: regular rate Rhythm: regular rhythm GI: GI Palp: Yes Soft to palpation Skin: Wounds: wounds noted Other: Swelling anterior right hand with a punctate lesion Extrem: General: edema Psych: Mental Status: mental status grossly normal Affect: normal affect Course Course Emergency Course: patient received dose of Depo-Medrol, updated with some her tetanus and patient received Zofran for nausea. Otherwise there is no shortness of breath no audible wheezing no abdominal pain. Critical Care Time Critical Care Time Critical Care Time: No Discharge Plan Discharge Clinical Impression: Insect bite Patient Disposition: Home, Self-Care Condition: Stable Instructions: Antibiotic Form, Insect Bite or Sting (ED) Additional Instructions: take medicine as prescribed and follow up with primary if symptoms persist or worsen. Prescriptions: New methylprednisolone [Medrol (Brennan)] 4 mg tablets,dose pack See Rx Instructions .ROUTE .COMPLEX Qty: 21 0RF Rx Instructions: orally per package directions epinephrine [EpiPen 2-Brennan] 0.3 mg/0.3 mL auto-injector 0.3 mg IM ONCE Qty: 2 0RF Rx Instructions: as a single dose; may repeat once ondansetron 4 mg tablet,disintegrating 4 mg PO Q6H PRN (Reason: nausea and vomiting) Qty: 10 0RF No Action estradiol
[2022-10-10] MEDS: TETANUS,DIPHTHERIA,AC PERTUSSIS ADULT 0.5 ML (ADACEL) IM (17:23)
[2022-10-10] MEDS: ONDANSETRON HCL ODT 4 MG TABLET PO (17:23)
[2022-10-10] MEDS: methylPREDNISolone ACETATE 40 MG/ML VIAL 80 MG IM (17:23)
[2022-10-10 18:02] VITALS: BP 131/78; PULSE 60; RESP 17; TEMP 36.9; O2SAT 97
== END 2022-10-10 18:02 | disposition home or self-care (01) ==
PROVIDERS: Emergency Provider Emergency Medicine; PCP Family Medicine
DX: T63.461A Toxic effect of venom of wasps, accidental (unintentional), initial encounter (principal); I10 Essential (primary) hypertension; F32.A Depression, unspecified; F41.9 Anxiety disorder, unspecified; F17.200 Nicotine dependence, unspecified, uncomplicated; Z23 Encounter for immunization
CPT/HCPCS: 90471; 90715; 96372; 99283; A9270; J1030

== ENCOUNTER 2024-11-01 17:07 | Emergency (ER) | payer MEDICARE, MEDICAID, SELFPAY ==
[2024-11-01 17:07] VITALS: BP 153/88; PULSE 66; RESP 18; TEMP 36.9; O2SAT 98
--- NOTE | 2024-11-01 17:21 | ED_ITS ---
HPI - Skin/Abscess/Foreign Bdy General Chief complaint: Skin/Abscess/Foreign Body Stated complaint: rash Time Seen by Provider: 11/01/24 17:21 Source: patient Mode of arrival: ambulatory Limitations: no limitations History of Present Illness HPI narrative: Patient is a 73-year-old female with an insect bite and allergic reaction over the past day. She had a home health nurse notice the rash and center to come in in case it was scabies. The rash is on her chest and left neck. She is having pruritus. MD complaint: insect bite/sting Onset (ago): day(s) ( Two) Location: neck ( left) and chest ( left) Severity: moderate Severity scale (1-10): 3 Quality: pruritic Pain Consistency: constant Relieving factors: none Exacerbating factors: none Context: other ( patient had a suspect insect bite and pruritus in the past day ; she has been having pruritus and a flared rash on her chest and neck; she is worried about scabies) Associated symptoms: denies other symptoms Treatments prior to arrival: none Related Data Home Medications ?Medication ?Instructions ?Recorded ?Confirmed ?Last Taken ?Type albuterol sulfate 90 mcg/actuation 2 puff inhalation QID PRN 03/24/20 10/10/22 Unknown History aerosol inhaler (ProAir HFA) Shortness Of Breath bupropion HCl 300 mg 24 hr tablet, 450 mg PO DAILY 03/24/20 10/10/22 Unknown History extended release estradiol 1 mg tablet 1 mg PO DAILY 03/24/20 10/10/22 Unknown History gabapentin 300 mg capsule 300 mg PO HS 03/24/20 10/10/22 Unknown History lorazepam 0.5 mg tablet 0.5 mg PO DIRECTED PRN Anxiety 05/08/22 10/10/22 Unknown History Allergies Allergy/AdvReac Type Severity Reaction Status Date / Time Sulfa (Sulfonamide Allergy Itching Verified 11/01/24 17:13 Antibiotics) indomethacin AdvReac Unknown Verified 11/01/24 17:13 naproxen AdvReac Unknown Verified 11/01/24 17:13 tramadol AdvReac Unknown Verified 11/01/24 17:13 Review of Systems Review of Systems: All systems reviewed & are unremarkable except as noted in HPI and below Constitutional: Constitutional: Reports no additional constitutional complaints Eyes: Eyes: Reports no additional eye complaints ENT: Reports system reviewed and no additional complaints, except as documented Cardiovascular: Cardiovascular: Reports no additional cardiovascular complaints Respiratory: Respiratory: Reports no additional respiratory complaints Gastrointestinal: Gastrointestinal: Reports no additional gastrointestinal complaints Genitourinary: Genitourinary: Reports no additional female genitourinary complaints Musculoskeletal: Musculoskeletal: Reports no additional musculoskeletal complaints Integumentary/Breasts: Skin/Breast: Reports system reviewed and no additional complaints, except as docu Neurologic: Reports system reviewed and no additional complaints, except as documented Psychiatric: Psychiatric: Reports no additional psychiatric complaints Endocrine: Endocrine: Reports no additional endocrine complaints Hematologic/Lymphatic: Hematologic/Lymphatic: Reports no additional hematologic/lymphatic complaints Allergic/Immunologic: Allergic/Immunologic: Reports no additional allergic/immunologic complaints PMFSH Past Medical History Medical History Hypertension Chronic back pain Depression Anxiety History of neuropathy Surgical History Surgical History H/O knee surgery History of back surgery H/O: hysterectomy Social History Social History Smoking status: Current every day smoker Alcohol intake: current Substance use: never Living arrangements: with family Exam Const: General: healthy appearing Nutritional Appearance: well nourished Orientation/consciousness: patient oriented x3 HENMT: Head: normal to inspection Ears: external ears normal Face/Nose/Sinus: Normal external nose present Eyes: Conjunctivae: conjunctivae normal Pupils: Equal, round and reactive pupils present EOM: EOMs intact bilaterally Neck: Neck: normal visual inspection Chest: Chest palpation & inspection: normal inspection of the chest Resp: Effort & Inspection: normal respiratory effort and not labored Auscultation: clear to auscultation bilaterally and no crackles Cardio: Rate: regular rate Rhythm: regular rhythm Heart sounds: no murmurs GI: Inspection: non-distended Auscultation: normal bowel sounds and bowel sounds present : General: Yes bladder normal to palpation Back/Spine/Pelvis: Back: no CVA tenderness Skin: General skin exam: normal color Rashes: rash noted Wounds: no wounds Other: left chest has 3 distinct nodular / erythema hives and left neck has similar 3 areas; these are not scabies in nature; we discussed bedbugs but she said she has recently monitored for that and she does not feel bedbugs are likely Neuro: General: patient oriented x3 and moves all extremities Cranial nerves: Yes Nystagmus not present Speech: normal speech Extrem: General: normal to inspection Psych: Mental Status: mental status grossly normal Affect: normal affect Attitude: cooperative Course Vital Signs Vital signs: Vital Signs Temperature 36.9 C 11/01/24 17:07 Pulse Rate 66 11/01/24 17:07 Respiratory Rate 18 11/01/24 17:07 Blood Pressure 153/88 H 11/01/24 17:07 Pulse Oximetry 98 11/01/24 17:07 Oxygen Delivery Room Air 11/01/24 17:07 Temperature 36.9 C 11/01/24 17:07 Pulse Rate 66 11/01/24 17:07 Respiratory Rate 18 11/01/24 17:07 Blood Pressure 153/88 H 11/01/24 17:07 Pulse Oximetry 98 11/01/24 17:07 Oxygen Delivery Room Air 11/01/24 17:07 MDM - Skin/Abscess/Foreign Bdy MDM Narrative Medical decision making narrative: patient is a 73-year-old female with left chest and left neck rash. Reassurance. Desonide cream and hydroxyzine. Discharge Plan Discharge Clinical Impression: Pruritic dermatitis Insect bite Qualifiers: Encounter type: initial encounter Site of insect bite: thoracic wall Front or b ack of thoracic wall: front Thoracic wall location detail: left Qualified Code(s): S20.362A - Insect bite (nonvenomous) of left front wall of thorax, initial encounter; W57.XXXA - Bitten or stung by nonvenomous insect and other nonvenomous arthropods, initial encounter Patient Disposition: Home Condition: Stable Instructions: Insect Bite or Sting (ED), General Allergic Reaction (ED) Patient Language: Ghanaian Prescriptions: New desonide 0.05 % cream 1 applic topical BID PRN (Reason: skin irritation) Qty: 15 0RF hydroxyzine HCl 25 mg tablet 25 mg PO BID PRN (Reason: itching) Qty: 20 0RF No Action estradiol 1 mg tablet 1 mg PO DAILY gabapentin 300 mg capsule 300 mg PO HS albuterol sulfate [ProAir HFA] 90 mcg/actuation Hfa Aerosol Inhaler 2 puff INHALATION QID PRN (Reason: Shortness Of Breath) bupropion HCl 300 mg tablet extended release 24 hr 450 mg PO DAILY hydrocodone-acetaminophen 5-325 mg tablet 1 tablet PO Q8H PRN (Reason: pain) Qty: 10 0RF lorazepam 0.5 mg tablet 0.5 mg PO DIRECTED PRN (Reason: Anxiety) methylprednisolone [Medrol (Brennan)] 4 mg tablets,dose pack See Rx Instructions .ROUTE .COMPLEX Qty: 21 0RF Rx Instructions: orally per package directions epinephrine [EpiPen 2-Brennan] 0.3 mg/0.3 mL auto-injector 0.3 mg IM ONCE Qty: 2 0RF Rx Instructions: as a single dose; may repeat once ondansetron 4 mg tablet,disintegrating 4 mg PO Q6H PRN (Reason: nausea and vomiting) Qty: 10 0RF Follow-up/Referrals: Jayjay Phillips M.D. [Primary Care Provider] - Time of Disposition: 18:59
--- OUTSIDE RECORDS SUMMARY | 2024-11-01 17:33 | XMS_ITS | Clinical Summary ---
Author Organization [facility] Address [address] [place] [address] Care Team Providers Care Costume Seamstress Name Role Phone Jayjay Phillips MD Primary Care Provider Allergies Active Allergy Reactions Criticality Noted Date Comments Naproxen Anaphylaxis High 03/04/2014 Sulfa Antibiotics Other (see comment) Medium 4 Acute intermittent porphyria Tramadol Dizziness,Vomiting Medium 03/04/2014 Medications albuterol sulfate HFA 108 (90 Base) MCG/ACT inhaler Inhale 2 puffs into the lungs every 4 (four) hours as needed. 0 Active LORazepam 0.5 MG tablet Take 1 tablet (0.5 mg total) by mouth every 8 (eight) hours as needed. 0 Active mulitvitamin tablet Take 1 tablet by mouth daily. Active Turmeric (QC TUMERIC COMPLEX OR) Take 1 tablet by mouth daily. Active gabapentin 100 MG capsule Take 3 capsules (300 mg total) by mouth nightly. 1 Active buPROPion XL (WELLBUTRIN XL) 150 MG 24 hr tablet Take 1 tablet (150 mg total) by mouth every morning. 3 Active buPROPion XL (WELLBUTRIN XL) 300 MG 24 hr tablet Take 1 tablet (300 mg total) by mouth every morning. 3 Active EPINEPHrine 0.3 MG/0.3ML injection 3 Active Vitamin D3 125 mcg Tab Take 1 tablet (125 mcg total) by mouth daily. Active amphetamine-dextroa mphetamine XR (ADDERALL XR) 20 MG 24 hr capsule Take 1 capsule (20 mg total) by mouth every morning. 5 Active methocarbamol (ROBAXIN) 750 MG TabIndications:Prim stephanie osteoarthritis of right knee,Osteochondral defect of patella,Primary osteoarthritis of left knee Take 1 tablet (750 mg total) by mouth 3 (three) times daily. 45 tablet 1 Active Hospital, Clinic, or Other Facility Administered Medication Ordered Dose Route Frequency Start Date End Date Status hyaluronate sodium injection 20 mgIndications:Primary osteoarthritis of right knee 20 mg IX Once 10/05/2024 10/05/2024 Ended hyaluronate sodium injection 20 mgIndications:Primary osteoarthritis of right knee 20 mg IX Once 10/12/2024 10/12/2024 Ended hyaluronate sodium injection 20 mgIndications:Primary osteoarthritis of right knee 20 mg IX Once 10/19/2024 10/19/2024 Ended Active Problems Problem Noted Date Diagnosed Date Primary osteoarthritis of left knee 08/31/2024 Osteochondral defect of patella 08/31/2024 Incarcerated inguinal hernia 07/08/2022 Left wrist tendonitis 06/28/2020 Wrist pain, acute, right 09/03/2017 Osteoarthritis of finger of left hand 09/02/2017 Overview (12/27/2019): Transitioned From: Degenerative joint disease of thumb Ganglion of wrist 03/12/2017 Encounter for orthopedic follow-up care 12/27/19 17 Degenerative arthritis of finger, right 09/06/19 16 Osteoarthritis of carpometacarpal (CMC) joint of thumb 09/06/2015 Overview (12/27/2019): Transitioned From: Osteoarthritis of first carpometacarpal joint, unspecified Trigger finger of right thumb 09/06/2015 Osteoarthritis of right knee 06/23/2015 Aftercare following surgery to body system 05/08 Nodule of finger, right 03/30/2015 Old tear of lateral meniscus of right knee 03/30 Overview (12/27/2019): Description: anterior horn and body Right knee pain 03/30/2015 Ganglion cyst of flexor tend on sheath of finger of right hand 01/27/2015 Trigger middle finger of left hand 07/15/2014 Resolved Problems Problem Noted Date Diagnosed Date Resolved Date Postoperative examination 03/28/2014 Encounter for preventive health examination 03/03/2014 01/03/2020 Encounters Date Type Department Care Team Description 10/19/2024 11:30 AM CDT Office Visit [address] [address] Christiano Alexander WOOL CLASSER-BC Euflexxa (#3 RIGHT knee) 10/19/2024 Travel 10/12/2024 11:30 AM CDT Office Visit [address] [address] Christiano Alexander WOOL CLASSER-BC Knee Pain (RIGHT #2 Euflexxa injection ) 10/12/2024 Travel 10/05/2024 11:00 AM CDT Office Visit [address] [address] Christiano Alexander WOOL CLASSER-BC Knee Pain (RIGHT) 10/05/2024 Travel 09/15/[address] [address] Christiano Alexander WOOL CLASSER-BC Follow Up Call 09/01/2024 11:15 AM CDT Office Visit [address] [address] Christiano Alexander WOOL CLASSER-BC Knee Pain (LEFT) 09/01/2024 Travel 08/31/2024 10:00 AM CDT - 08/31/2024 11:59 PM CDT Hospital Encounter [facility] [address] [place] [id number] Christiano Alexander WOOL CLASSER-BC Discharge Disposition: Home or Self Care (Routine Discharge) 08/31/2024 10:00 AM CDT Office Visit [address] [address] Christiano Alexander FNP-BC Knee Pain (BILATERAL) 08/31/2024 Travel 08/24/2024 Orders Only [facility] [address] [facility] [address] [place] [id number] Christiano Alexander FNP-BC from Last 3 Months Family History * Patient is adopted Medical History Relation Comments No Known Problems Father No Known Problems Maternal Grandfather No Known Problems Maternal Grandmother Dementia Mother Heart Disease Mother Heart Attack Other No Known Problems Paternal Grandfather No Known Problems Paternal Grandmother Relation Status Comments Father Maternal Grandfather Maternal Grandmother Mother Other Paternal Grandfather Paternal Grandmother Social History Tobacco Use Types Packs/Day Years Used Date Smoking Tobacco: Some Days Cigarettes 0.5 20 Started: 03/14/2000; Last attempted to quit: 03/14/2020 Smokeless Tobacco: Never Tobacco Cessation:Ready to Q uit: Not Asked; Counseling Given: Not Answered Alcohol Use Standard Drinks/Week Comments Yes 0 (1 standard drink = 0.6 oz pur e alcohol) rare Humiliation, Afraid, Rape, and Kick questionnair e Answer Date Recorded Within the last year, have y ou been afraid of your partner or ex-partner? No 07/09/2022 Within the last year, have y ou been humiliated or emotionally abused in other ways by your partner or ex-partner? No Within the last year, have y ou been kicked, hit, slapped, or otherwise physically hurt by your partner or ex-partner? No 07/09/2022 Within the last year, have y ou been raped or forced to have any kind of sexual activity by your partner or ex-partner? No 07/09/2022 AUDIT-C Answer Date Recorded Frequency of Alcohol Consumption Monthly or less 05/21/2019 Average Number of Drinks Not on file 020 Frequency of Binge Drinking Not on file 10/2019 Overall Financial Resource Strain (CARDIA) Answe r Date Recorded How hard is it for you to pa y for the very basics like food, housing, medical care, and heating? Not hard at all 07/09/2022 Hunger Vital Sign Answer Date Recorded Within the past 12 months, y ou worried that your food would run out before you got the money to buy more. Never true 07/10/19 23 Within the past 12 months, t he food you bought just didn't last and you didn't have money to get more. Never true 07/09/2022 PRAPARE - Transportation Answer Date Re corded In the past 12 months, has l ack of transportation kept you from medical appointments or from getting medications? No 06/13 In the past 12 months, has l ack of transportation kept you from meetings, work, or from getting things needed for daily living? No 07/09/2022 Housing Stability Vital Sign Answer Ajith e Recorded In the last 12 months, was t here a time when you were not able to pay the mortgage or rent on time? No 07/09/2022 In the last 12 months, how many places have you lived? 1 07/09/2022 In the last 12 months, was t here a time when you did not have a steady place to sleep or slept in a prison (including now)? No 07/09/2022 Comments No Sex and Gender Information Value Date Recorded Sex Assigned at Female 06/10/2024 2:04 PM [employer] Legal Sex Female 8:57 PM [employer] Gender Identity Female 07/02/2022 11:25 AM CDT Sexual Orientation Straight 07/02/2022 11 :25 AM CDT Last Filed Vital Signs Vital Sign Reading Time Taken Comments Blood Pressure 124/83 03/04/2024 3:35 PM [employer] Pulse 63 03/04/2024 3:35 PM [employer] Temperature 36.3 C (97.3 F) 03/04/2024 3:35 PM [employer] Respiratory Rate 18 03/04/2024 3:35 PM [employer] Oxygen Saturation 96% 03/04/2024 3:35 PM [employer] Inhaled Oxygen Concentration - - Weight 50.3 kg (111 lb) 10/19/2024 11:30 AM CDT Height 160 cm (5' 3) 10/19/2024 11:30 AM CDT Body Mass Index 19.66 10/19/2024 11:30 AM CDT Plan of Treatment Health Maintenance Due Date Last Done Comments Colorectal Cancer Screening Colonoscopy (10 Years) 1952 Hepatitis C 1970 DTaP, Tdap and Td Vaccines ( 1 - Tdap) 12/04/1971 Pneumococcal Vaccine: 50+ Years (1 of 2 - PCV) 12/04/1971 Zoster Vaccines (1 of 2) 2002 Annual Medicare Wellness Visit 2017 COVID-19 Vaccine (1 - 2023-2 5 season) 2023 Mammogram Screening 07/16/2025 07/17/2023, 01/14/2020 RSV Immunization or 60+ Years (1 - 1-dose 75+ series) 12/04/2027 Dexa Scan (General) Completed 07/17/2023 Meningococcal B Vaccine Aged Out No l onger eligible based on patient's age to complete this topic Meningococcal Vaccine Aged Out No jac judy eligible based on patient's age to complete this topic RSV Immunizations Under 20 Months Aged Out No longer eligible b ased on patient's age to complete this topic Goals Goal Patient Goal Type Associated Problems Recent Progress Patient-Stated? Author Safety Patient/family will have appropriate support at home upon discharge Lifestyle No Sharri Morataya RN Medical Devices Implanted Type Area Pet Training Instructor Device Identifier Shelf Expiration Date Model / Serial / Lot Kit Internal Brace Hand & Wrist Lig Augment Repair - [id number] Implanted:Qty : 1 on 03/04/2024 by Tristan Chan MD at [facility] Bunola Right: Hand [employer] 09/11/2028 [id number]-[id number] / / Graft Bone Allosource Canc Crushed Fd 5ml - [id number] Implanted:Qty : 1 on 03/04/2024 by Tristan Chan MD at [facility] Bone Right: Hand [employer] 06/09/2028 [id number] / / Component [place] 20 - [id number] Implanted:Qty : 1 on 03/04/2024 by Tristan Chan MD at [facility] Finger Right: Hand [employer] 07/13/2025 [id number]-[id number]-[id number] / / [id number] Mesh Parietex Rigid 15cm X 10cm - [id number] Implanted:Qty : 1 on 07/09/2022 by Marcio Luke DO at [facility] Mesh Left: Inguinal [employer] [id number] 03/13/2026 [id number] / / [id number] K Wire Eva 6 In X .045 In - Sn/A Implanted:Qty : 1 on 09/05/2020 by Johnnie Wan, DPJulia at [facility] Wire Right: Foot [employer] [id number] 12/04/2029 [id number] / N/A / [id number] K Wire Eva 6 In X .045 In - Sn/A Implanted:Qty : 1 on 09/05/2020 by Johnnie Wan, DPJulia at [facility] Wire Right: Foot [employer] [id number] 02/06/2030 [id number] / N/A / [id number] Screw Synthes 2.0 Cortex Self Tap 12mm - Sn/A Implanted:Qty : 3 on 09/05/2020 by Johnnie Wan, DPJulia at [facility] Right: Foot SYNTHES 201.812 / N/A / N/A Screw Synthes 2.0 Cortex Self Tap 14mm - Sn/A Implanted:Qty : 1 on 09/05/2020 by Johnnie Wan, DPJulia at [facility] Right: Foot SYNTHES 201.814 / N/A / N/A Explanted Type Area Pet Training Instructor Device Identifier Shelf Expiration Date Model / Serial / Lot K Wire Eva 6 In X .062 In - [id number] Explanted:Qty: 2 on 09/05/2020 at [facility] Wire Right: Foot [employer] [id number] 03/25/2030 [id number] / / [id number] Wire Synthes 1.25mm Reinaldo W/Trocar Point 150mm - Sn/A Explanted:Qty: 1 on 09/05/2020 at [facility] Right: Foot SYNTHES 292.12 / N/A / N/A Wire Synthes 1.25mm Reinaldo W/Trocar Point 150mm - Sn/A Explanted:Qty: 2 on 09/05/2020 at [facility] Right: Foot SYNTHES 292.12 / N/A / N/A Drill Bit Synthes 1.5 Qc 85mm - Sn/A Explanted:Qty: 1 on 09/05/2020 at [facility] Right: Foot SYNTHES 310.15 / N/A / N/A Screw Synthes 2.0 Cortex Self Tap 14mm - Sn/A Explanted:Qty: 1 on 09/05/2020 at [facility] Right: Foot SYNTHES 201.814 / N/A / N/A Procedures Procedure Name Priority Date/Time Associated Diagnosis Comments XR KNEE NAWAF 3V Routine 08/31/2024 10:14 AM CDT Bilateral knee pain XR KNEE STAND AP NAWAF ONLY Routine 08/31/2024 10:14 AM CDT Bilateral knee pain MG SCREENING W AIRAM NAWAF DIGI Routine 07/17/2023 10:41 AM CDT Visit for screening mammogram BONE DENSITY/DEXA Routine 07/17/2023 9:4 7 AM CDT Post-menopausal from Last 3 Months or Most Recently Relevant to Health Maintenance Results * XR KNEE NAWAF 3V (08/31/2024 10:14 AM CDT) Anatomical Region Laterality Modality Knee Radiographic Jaqueline ging 09/02/2024 12:4 9 PM CDT Impressions 09/02/2024 12:58 PM CDT IMPRESSION: No acute findings. Degenerative changes as described. Ordered By: CHRISTIANO ALEXANDER Interpreted By: Nando Fletcher MD, 09/02/2024 12:49 PM Narrative 09/02/2024 12:58 PM CDT [address] [place] [address] Examination: Bilateral knees. Exam time: 0905 hours. Clinical history: Bilateral pain, right greater than left. Comparison: 08/27/2021. Technique: [place] and weightbearing AP, PA and lateral views each. Findings: No fracture, dislocation or other acute bony abnormality is identified. There are relatively symmetric mild degenerative changes manifested by joint space narrowing and periarticular osteophyte formation. There has been some progression in the exam interval. There is now apparent subchondral cyst formation in the mid to upper pole of the left patella. There is a small joint effusion on the right. No appreciable joint effusion on the left. No other significant bone or joint abnormality is noted. No acute soft tissue abnormality. Procedure Note Nando Fletcher MD - 09/02/2024 [facility] [address] [place] [address] Examination: Bilateral knees. Exam time: 0905 hours. Clinical history: Bilateral pain, right greater than left. Comparison: 08/27/2021. Technique: [place] and weightbearing AP, PA and lateral views each. Findings: No fracture, dislocation or other acute bony abnormality isidentified. There are relatively symmetric mild degenerative changesmanifested by joint space narrowing and periarticular osteophyteformation. There has been some progression in the exam interval. There isnow apparent subchondral cyst formation in the mid to upper pole of theleft patella. There is a small joint effusion on the right. No appreciablejoint effusion on the left. No other significant bone or joint abnormalityis noted. No acute soft tissue abnormality. IMPRESSION: No acute findings. Degenerative changes as described. Ordered By: CHRISTIANO ALEXANDER Interpreted By: Nando Fletcher MD, 09/02/2024 12:49 PM Christiano Alexander WOOL CLASSER-BC GENERAL IMAGING Final Resu lt * XR KNEE STAND AP NAWAF ONLY (08/31/2024 10:14 AM CDT) Anatomical Region Laterality Modality Knee Radiographic Jaqueline ging 09/02/2024 12:4 9 PM CDT Impressions 09/02/2024 12:58 PM CDT IMPRESSION: No acute findings. Degenerative changes as described. Ordered By: CHRISTIANO ALEXANDER Interpreted By: Nando Fletcher MD, 09/02/2024 12:49 PM Narrative 09/02/2024 12:58 PM CDT [address] [place] [address] Examination: Bilateral knees. Exam time: 0905 hours. Clinical history: Bilateral pain, right greater than left. Comparison: 08/27/2021. Technique: [place] and weightbearing AP, PA and lateral views each. Findings: No fracture, dislocation or other acute bony abnormality is identified. There are relatively symmetric mild degenerative changes manifested by joint space narrowing and periarticular osteophyte formation. There has been some progression in the exam interval. There is now apparent subchondral cyst formation in the mid to upper pole of the left patella. There is a small joint effusion on the right. No appreciable joint effusion on the left. No other significant bone or joint abnormality is noted. No acute soft tissue abnormality. Procedure Note Nando Fletcher MD - 09/02/[address] [place] [address] Examination: Bilateral knees. Exam time: 0905 hours. Clinical history: Bilateral pain, right greater than left. Comparison: 08/27/2021. Technique: [place] and weightbearing AP, PA and lateral views each. Findings: No fracture, dislocation or other acute bony abnormality isidentified. There are relatively symmetric mild degenerative changesmanifested by joint space narrowing and periarticular osteophyteformation. There has been some progression in the exam interval. There isnow apparent subchondral cyst formation in the mid to upper pole of theleft patella. There is a small joint effusion on the right. No appreciablejoint effusion on the left. No other significant bone or joint abnormalityis noted. No acute soft tissue abnormality. IMPRESSION: No acute findings. Degenerative changes as described. Ordered By: CHRISTIANO ALEXANDER Interpreted By: Nando Fletcher MD, 09/02/2024 12:49 PM us Christaino Alexander WOOL CLASSER-BC GENERAL IMAGING Final Resu lt * MG SCREENING W AIRAM NAWAF DIGI (07/17/2023 10:41 AM CDT) Anatomical Region Laterality Modality Breast Bilateral Mammography 07/17/2023 4:43 PM CDT Narrative 07/17/2023 4:43 PM CDT Examination: Digital screening mammogram with CAD. Clinical history: Asymptomatic patient presents for routine screening. Comparison: 01/14/2020, 06/24/2018, 02/28/2017, 02/01/2016. Technique: Bilateral digital mammograms. The exam was interpreted with the use of a computer-aided detection (CAD) system. Additional 3-D tomosynthesis images were acquired. Tissue density: The breast tissue contains scattered fibroglandular densities. Findings: The breast tissue contains scattered fibroglandular densities. Benign-appearing calcification noted. No suspicious mass, microcalcification or area of architectural distortion can be identified. From a mammographic standpoint, routine followup in one year would seem adequate. IMPRESSION: No suspicious change since the previous exams. Recommendation: 1: Routine Screening Bilateral in 1 Year Assessment: ACR BI-RADS 2 - BENIGN FINDING(S) Ordered By: GALE SOSA Interpreted By: Nando Fletcher MD, 07/17/2023 4:43 PM Gale Sosa [employer] SEW[employer] MAMMO Final Result * BONE DENSITY/DEXA (07/17/2023 9:47 AM CDT) Anatomical Region Laterality Modality Bone Bone Density 07/17/2023 9:56 AM CDT Impressions 07/17/2023 9:58 AM CDT Impression: 1. Within normal limits in the lumbar spine. 2. Consistent with osteopenia in both hips. Ordered By: GALE SOSA Interpreted By: Nando Fletcher MD, 07/17/2023 9:56 AM Narrative 07/17/2023 9:58 AM CDT Examination: DEXA Bone densitometry Clinical history: Postmenopausal. Osteoporosis screening. Comparison: None. Technique: DEXA bone mineral density evaluation was performed in the AP projection over the lumbar spine and over both hips in the AP projection utilizing standard imaging techniques. Assessment: The BMD measured at the AP spine L1-L4 is 1.089 g/cm2 with a T-score of 0.4 and a Z-score of 2.5. Bone density is up to 10% below young normal. This patient is considered normal according to the World Health Organization (WHO) criteria. Fracture risk is low. The BMD measured at the femoral neck left is 0.617 g/cm2 with a T-score of -2.1 and a Z-score of -0.3. The patient is considered osteopenic according to World Health Organization (WHO) criteria. Bone density is between 10 and 25% below young normal. Fracture risk is moderate. Treatment is advised. The BMD measured at the femoral neck right is 0.633 g/cm2 with a T-score of -1.9 and a Z-score of -0.1. The patient is considered osteopenic according to World Health Organization (WHO) criteria. Bone density is between 10 and 25% below young normal. Fracture risk is moderate. Treatment is advised. FRAX 10-year fracture risk: Major Osteoporotic Fracture: 11%. Hip Fracture: 2.4%. Recommendations: All patients should ensure an adequate intake of dietary calcium and vitamin D. The NOF recommend adults under the age of 50 need 1000 mg of calcium and 400-800 IU of vitamin D daily. Effective therapy for the prevention and treatment of osteoporosis include biphosphonates. Follow-up: People with diagnosed cases of osteoporosis or at high risk for fracture should have regular bone mineral density test. For patients eligible for Medicare, routine testing is allowed once every 2 years. Testing frequency can be increased to one year for patients who have rapidly progressing disease, those who are receiving or discontinuing medical therapy to restore bone mass, or have additional risk factors. Based on these results, a followup exam is recommended in two years. Procedure Note Nando Fletcher MD - 07/17/2023 Examination: DEXA Bone densitometry Clinical history: Postmenopausal. Osteoporosis screening. Comparison: None. Technique: DEXA bone mineral density evaluation was performed in the APprojection over the lumbar spine and over both hips in the AP projectionutilizing standard imaging techniques. Assessment: The BMD measured at the AP spine L1-L4 is 1.089 g/cm2 with a T-score of0.4 and a Z-score of 2.5. Bone density is up to 10% below young normal.This patient is considered normal according to the World HealthOrganization (WHO) criteria. Fracture risk is low. The BMD measured at the femoral neck left is 0.617 g/cm2 with a T-score of-2.1 and a Z-score of -0.3. The patient is considered osteopenicaccording to World Health Organization (WHO) criteria. Bone density isbetween 10 and 25% below young normal. Fracture risk is moderate.Treatment is advised. The BMD measured at the femoral neck right is 0.633 g/cm2 with a T-scoreof -1.9 and a Z-score of -0.1. The patient is considered osteopenicaccording to World Health Organization (WHO) criteria. Bone density isbetween 10 and 25% below young normal. Fracture risk is moderate.Treatment is advised. FRAX 10-year fracture risk: Major Osteoporotic Fracture: 11%. Hip Fracture: 2.4%. Recommendations: All patients should ensure an adequate intake of dietary calcium andvitamin D. The NOF recommend adults under the age of 50 need 1000 mg ofcalcium and 400-800 IU of vitamin D daily. Effective therapy for theprevention and treatment of osteoporosis include biphosphonates. Follow-up: People with diagnosed cases of osteoporosis or at high risk for fractureshould have regular bone mineral density test. For patients eligible forMedicare, routine testing is allowed once every 2 years. Testing frequencycan be increased to one year for patients who have rapidly progressingdisease, those who are receiving or discontinuing medical therapy torestore bone mass, or have additional risk factors. Based on these results, a followup exam is recommended in two years. Impression: 1. Within normal limits in the lumbar spine. 2. Consistent with osteopenia in both hips. 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
--- OUTSIDE RECORDS SUMMARY | 2024-11-01 17:33 | XMS_ITS | Encounter Summary ---
Author Organization [facility] Address [address] [place] [id number] Care Team Providers Care Senior Category Manager Name Role Phone Jayjay Phillips MD Primary Care Provider [phone] Encounter Details Date Type Department Care Team (Late st Contact Info) Description 09/19/2018 Abstract SFL CONVERSION [address] [place] [address] , Generic Conversion, Social History Tobacco Use Types Packs/Day Years Used Date Smoking Tobacco: Never Assessed Comments Unknown Sex and Gender Information Value Date Recorded Sex Assigned at Female 06/10/2024 2:04 PM CREW SCHEDULER Legal Sex Female 8:57 PM CREW SCHEDULER Gender Identity Female 07/02/2022 11:25 AM CDT Sexual Orientation Straight 07/02/2022 11 :25 AM CDT documented as of this encounter Plan of Treatment Not on file documented as of this encounter Visit Diagnoses Not on filedocumented in this encounter Additional Health Concerns Infection Onset Date Last Indicated Resolved Time COVID-19 Rule Out 09/02/2020 09/02/2020 09/03/2020 4:17 AM CDT MRSA Comment:History of MRSA in 2019 in left ear per PAT RN (SB) 02/27/2024 02/27/2024 documented as of this encounter Care Teams Senior Category Manager Relationship Specialty Start Date End Date Jayjay Phillips MD [address] [place] [id number] PCP - General FAMILY PRACTICE 11/25/18 documented as of this encounter
== END 2024-11-01 19:05 | disposition home or self-care (01) ==
PROVIDERS: Emergency Provider Emergency Medicine; PCP Family Medicine
DX: L30.8 Other specified dermatitis (principal); I10 Essential (primary) hypertension; F17.210 Nicotine dependence, cigarettes, uncomplicated; W57.XXXA Bitten or stung by nonvenomous insect and other nonvenomous arthropods, initial encounter
CPT/HCPCS: 99283

== ENCOUNTER 2025-01-12 10:02 | Outpatient (RCR) | payer MEDICARE, MEDICAID, SELFPAY ==
--- NOTE | 2025-01-12 12:04 | OPREHPOC ---
Outpatient Therapy Plan of Care This is a Multidisciplinary Plan of Care that may contain components documented by all disciplines (PT, OT, and ST.) PT Problem 1 PT Problem #1 Knowledge Deficit PT Goal 1 Goal / Goal Update Independent and compliant with HEP. Target Visit 2 PT Problem 2 PT Problem #2 Impaired Strength PT Goal 1 Goal / Goal Update Pt to improve bilat hip strength to 5/5. Pt to imprve upper abdominal strength to 4/5 without pain. Pt to improve lower abdominal strength to 4-/5 without pain. Pt to improve cervical mm strength to 5/5. Target Visit 12 PT Problem 3 PT Problem #3 Impaired Range of Motion PT Goal 1 Goal / Goal Update Pt to achieve full lumbar AROM pain-free. Pt to improve bilat cervical rotation AROM to 55 deg. Target Visit 12 PT Problem 4 PT Problem #4 Impaired Functional Mobility PT Goal 1 Goal / Goal Update Pt to report 20% reduction in perceived disability on Oswestry. Pt to note improved standing tolerance when performing functional tasks at home. Target Visit 12
--- NOTE | 2025-01-12 12:04 | PTOPEVAL1 ---
Assessment and note entered by Eloisa Rutherford, PT Evaluation Information Assessment Status Evaluation ICD-10 Condition Codes (PT) Cervicalgia M54.2,Pain in Thoracic Spine M54.6, Pain in low back M54.50,Pain in right hip M25.551 Onset 01/13/2024 Subjective Information Pt reports she has chronic neck and back pain and that her back pain is worse than her neck pain. She does report some mild numbness and tingling from the knees down on both legs as well as increased urinary urgency. Pain worsens with bending forward, lifting and doing household tasks . She states her legs give out but it's very rare, and the most recent example she gives is getting out of the car and feeling like it will give out and she has to wait and get her bearings before walking. She also states her entire right side of her body is messed up, she has R knee and foot pain with previous foot surgery. She notes hip pain mainly on the R side and that her hip locks up. She states her doctor wants to avoid surgery on any part of her body as long as possible, and she has had a lumbar laminectomy in the past. She uses a cane occasionally depending on her pain and she is interested in getting evaluated for a rollator walker. Reported Pain Level Pain Score 6,8,7: Self Report Assessment PT Clinical Summary Mrs. Chu is a 74 yo female presenting to skilled PT evaluation with chronic neck, back and hip pain with her primary complaint being her lower back. She demonstrates hip and abdominal mm weakness and reproduction of pain with active movements of the lumbar spine such as bending forward and sideways. She also demonstrates postural deficits in sitting and standing and antalgic gait pattern that worsens with increased distance. Pt was trialed using a 2WW today and demonstrated improved gait quality and posture when using AD. She would benefit from MD referral for rollator to allow her to ambulate with good mechanics and to maintain her ambulation speed while also providing her with a seat to rest on should she need a break due to pain. Pt will benefit from skilled PT intervention to address strength, mobility, and posture to reduce her pain and improve her ability to stand for prolonged periods and improve functional independence. Plan of Care Interventions Electrical Stimulation,Gait Training,Hot Pack/Cold Pack,Manual Therapy,Neuro Re-education,Patient/ Caregiver Education,Therapeutic Activities, Therapeutic Exercise,Self-Care/Home Management PT Services Indicated Yes Treatment Frequency and 2x/week for 12 visits Duration These treatments will address the objective and functional deficits as defined above. The patient will be advanced safely and appropriately in order for the patient to progress towards his/her prior level of function. Additional exercises will be introduced and as well as a comprehensive home exercise program upon discharge, if needed, ?to ensure carryover of functional gains achieved in the clinic. This treatment plan has been reviewed and agreement upon by the patient.
--- NOTE | 2025-01-20 10:35 | PCPTNOTE ---
No call no show this date.
--- NOTE | 2025-02-17 13:57 | PCPTNOTE ---
Pt cancelled session due to stomach issues.
--- NOTE | 2025-03-02 12:51 | PCPTNOTE ---
no call no show
--- NOTE | 2025-03-30 07:59 | OPREHPOC ---
Outpatient Therapy Plan of Care This is a Multidisciplinary Plan of Care that may contain components documented by all disciplines (PT, OT, and ST.) PT Problem 1 PT Problem #1 Knowledge Deficit PT Goal 1 Goal / Goal Update Independent and compliant with HEP. Target Visit 2 Progress Not Met PT Goal 2 Goal / Goal Update Continue Target Visit 12 PT Problem 2 PT Problem #2 Impaired Strength PT Goal 1 Goal / Goal Update Pt to improve bilat hip strength to 5/5. Pt to imprve upper abdominal strength to 4/5 without pain. Pt to improve lower abdominal strength to 4-/5 without pain. Pt to improve cervical mm strength to 5/5. Target Visit 12 Progress Not Met PT Problem 3 PT Problem #3 Impaired Range of Motion PT Goal 1 Goal / Goal Update Pt to achieve full lumbar AROM pain-free. Pt to improve bilat cervical rotation AROM to 55 deg. Target Visit 12 Progress Not Met PT Problem 4 PT Problem #4 Impaired Functional Mobility PT Goal 1 Goal / Goal Update Pt to report 20% reduction in perceived disability on Oswestry. Pt to note improved standing tolerance when performing functional tasks at home. Target Visit 12 Progress Not Met
--- NOTE | 2025-03-30 07:59 | PTOPPROG ---
Assessment and note entered by Eloisa Rutherford, PT Evaluation Information Assessment Status Progress ICD-10 Condition Codes (PT) Cervicalgia M54.2,Pain in Thoracic Spine M54.6, Pain in low back M54.50,Pain in right hip M25.551 Onset 01/13/2024 Subjective Information Pt presents for her 10th skilled PT visit this date but she has not attended therapy in a few weeks. She states she tripped and fell over a cat around and injured the right side of her body. Pt reports she also fell this past Friday and landed on her face, and she reports this fall was due to having poor balance and coordination. She is having pain in her right knee and right shoulder blade with pain radiating down the arm. She reports feeling increased pain overall this date. Assessment PT Clinical Summary Mrs. Chu has attended 10 skilled PT visits addressing chronic neck and back pain. Initially her back pain was more egregious and we have been focusing more on that during PT sessions, however within recent weeks pt has not attended therapy due to frequent falls. She demonstrates today with minimal change in her LE strength as well as increased pain and increased Oswestry score. She would benefit from continued skilled PT intervention to address pain management and strengthening to improve low back stability and improve tolerance to functional activities. Plan of Care Interventions Electrical Stimulation,Gait Training,Hot Pack/Cold Pack,Manual Therapy,Neuro Re-education,Patient/ Caregiver Education,Therapeutic Activities, Therapeutic Exercise,Self-Care/Home Management PT Services Indicated Yes Treatment Frequency and 2x/week for 10 additional visits (20 total) Duration These treatments will address the objective and functional deficits as defined above. The patient will be advanced safely and appropriately in order for the patient to progress towards his/her prior level of function. Additional exercises will be introduced and as well as a comprehensive home exercise program upon discharge, if needed, ?to ensure carryover of functional gains achieved in the clinic. This treatment plan has been reviewed and agreement upon by the patient.
== END 2025-04-12 23:59 | disposition home or self-care (01) ==
LOC: CHSPT 10:02
DX: M54.50 Low back pain, unspecified (principal); M54.2 Cervicalgia; M25.552 Pain in left hip; M25.551 Pain in right hip; M54.6 Pain in thoracic spine
CPT/HCPCS: 72040; 72072; 72110; 73521; 97014; 97110; 97112; 97161; G0283

== ENCOUNTER 2025-01-12 11:21 | Outpatient (CLI) | payer MEDICARE, MEDICAID, SELFPAY ==
--- NOTE | ~2025-01-12 | XR_ITS ---
XR lumbar spine min 4V Indication: bI LATERAL HIP PAIN, PAIN CERVICAL LUMBAR ABD THORACIC Comparison: None Findings: Mild dextroconvex scoliosis. Moderate loss of vertebral height throughout. Grade 1 anterolisthesis of L4 on L5 and grade 1 retrolisthesis of L2 on L3 and L3 on L4, no acute fracture. Moderate to severe loss of disc height throughout. Soft tissues unremarkable Impression: No acute abnormality. Reviewed, dictated and finalized at location P. Impression: No acute abnormality.
--- NOTE | ~2025-01-12 | XR_ITS ---
XR_CERV2-3V_CR Indication: bI LATERAL HIP PAIN, PAIN CERVICAL LUMBAR ABD THORACIC Comparison: None Findings: Grade 1 anterolisthesis C3 on C4 and C4-C5, no fracture. Moderate loss of disc height C5-6 and C6-7. Soft tissues unremarkable Impression: No acute abnormality. Reviewed, dictated and finalized at location P. Impression: No acute abnormality.
--- NOTE | ~2025-01-12 | XR_ITS ---
EXAMINATION: XR hip BI wo pelvis, 01/12/2025 11:40 CDT HISTORY: bI LATERAL HIP PAIN, PAIN CERVICAL LUMBAR ABD THORACIC COMPARISON: No comparisons available. Findings: No acute fracture or malalignment. Moderate degenerative changes Soft tissues unremarkable. Impression: No acute fracture or malalignment. Reviewed, dictated and finalized at location P. Impression: No acute fracture or malalignment.
--- NOTE | ~2025-01-12 | XR_ITS ---
XR thoracic spine 3V Indication: bI LATERAL HIP PAIN, PAIN CERVICAL LUMBAR ABD THORACIC Comparison: None Findings: Moderate loss of vertebral height throughout, no fracture or subluxation. Moderate to severe loss of disc height throughout Soft tissues unremarkable Impression: No acute abnormality. Reviewed, dictated and finalized at location P. Impression: No acute abnormality.
--- OUTSIDE RECORDS SUMMARY | 2025-01-12 12:07 | XMS_ITS | Encounter Summary ---
Author Organization [facility] Address [address] [place] [address] Care Team Providers Care Water Ski Assembler Name Role Phone Jayjay Phillips MD Primary Care Provider Encounter Details Date Type Department Care Team (Late Contact Info) Description 09/19/2018 Abstract SFL CONVERSION [address] [place] [address] , Generic Conversion, Social History Tobacco Use Types Packs/Day Years Used Date Smoking Tobacco: Never Assessed Comments Unknown Sex and Gender Information Value Date Recorded Sex Assigned at Female 06/10/2024 2:04 PM MENTAL HEALTH THERAPIST Legal Sex Female 8:57 PM MENTAL HEALTH THERAPIST Gender Identity Female 07/02/2022 11:25 AM CDT Sexual Orientation Straight 07/02/2022 11 :25 AM CDT documented as of this encounter Plan of Treatment Upcoming Encounters Date Type Department Care Team (Late Contact Info) Description 04/21/2025 11:00 AM MENTAL HEALTH THERAPIST [facility] [address] [address] Johnnie Wan, DPM [address] [place] [address] documented as of this encounter Visit Diagnoses Not on filedocumented in this encounter Additional Health Concerns Infection Onset Date Last Indicated Resolved Time COVID-19 Rule Out 09/02/2020 09/02/2020 09/03/2020 4:17 AM CDT MRSA Comment: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
--- OUTSIDE RECORDS SUMMARY | 2025-01-12 12:07 | XMS_ITS | Clinical Summary ---
Author Organization [facility] Address [address] [place] [address] Care Team Providers Care Peach Grower Name Role Phone Jayjay Phillips MD Primary Care Provider Allergies Active Allergy Reactions Criticality Noted Date Comments Bee Venom Anaphylaxis High 08/12/2022 Naproxen Anaphylaxis High 03/04/2014 Sulfa Antibiotics Other [...] (125 mcg total) by mouth daily. Active amphetamine-dextro amphetamine XR (ADDERALL XR) 20 MG 24 hr capsule Take 1 capsule (20 mg total) by mouth every morning. 5 Active methocarbamol (ROBAXIN) 750 MG TabIndications:Domonique tay osteoarthritis of right knee,Osteochondral defect of patella,Primary osteoarthritis of left knee Take 1 tablet (750 mg total) by mouth 3 (three) times daily. 45 tablet 1 5 Active methylPREDNISolone , MIKAYLA, (MEDROL DOSEPAK) 4 MG tabletIndications: Trigger middle finger of left hand 4 mg Oral Tablet Therapy Pack. Follow package directions 1 each 5 Active Hospital, Clinic, or Other Facility Administered Medication Ordered Dose Route Frequency Start Date End Date Status methylPREDNISolone acetate (DEPO-Medrol) injection 40 mgIndications:Trigger middle finger of left hand 40 mg IM Once 12/24/2024 5 Ended lidocaine (PF) (XYLOCAINE) 1 % injection 0.5 mLIndications:Trigger middle finger of left hand 0.5 mL Other Once 12/24/2024 5 Ended methylPREDNISolone acetate (DEPO-Medrol) injection 80 mgIndications:Primary osteoarthritis of right knee 80 mg Other Once 12/28/2024 12/28/2024 Ended lidocaine (XYLOCAINE) 1 % injection SOLN 8 mLIndications:Primary osteoarthritis of right knee 8 mL Other Once 12/28/2024 12/28/2024 Ended Active Problems Problem Noted Date Diagnosed [...] Encounters Date Type Department Care Team Description 01/06/2025 11:00 AM CDT [facility] [address] [address] Johnnie Wan, DPM Toe Pain; [place]/ Callous Removal 01/06/2025 Travel 12/29/2024 Orders Only [facility] [address] [place] [address] Johnnie Wan, DPM 12/28/2024 11:00 AM CDT Office Visit [address] [address] Christiano Arce FNP-BC Knee Pain (RIGHT) 12/28/2024 Travel 12/24/2024 9:04 AM CDT - 12/24/2024 11:59 PM CDT Hospital Encounter [facility] [address] [place] [address] Christiano Arce FNP-TOMAS Discharge Disposition: Home or Self Care (Routine Discharge) 12/24/2024 9:00 AM CDT Office Visit [address] [address] Christiano Arce FNP-TOMAS Hand Pain (LEFT) 12/24/2024 Travel 12/21/2024 Orders Only [address] [place] [address] Christiano Arce FNP-BC 12/20/[address] [address] Christiano Arce FNP-BC Appointment Request 12/07/2024 Orders Only [facility] [address] [place] [address] Johnnie Wan, ELIJAH 10/19/2024 11:30 AM CDT Office Visit [address] [address] Christiano Arce FNP-BC Euflexxa (#3 RIGHT knee) 10/19/2024 Travel 10/12/2024 11:30 AM CDT Office Visit [address] [address] Christiano Arce FNP-BC Knee Pain (RIGHT #2 Euflexxa injection ) 10/12/2024 Travel from Last 3 Months Family History * [...] place to sleep or slept in a halfway (including now)? No 07/09/2022 Comments No Sex and Gender Information Value Date Recorded Sex Assigned at Female 06/10/2024 2:04 PM NIGHT CUSTODIAN Legal Sex Female 8:57 PM NIGHT CUSTODIAN Gender Identity Female 07/02/2022 11:25 AM CDT Sexual Orientation Straight 07/02/2022 11 :25 AM CDT Last Filed Vital Signs Vital Sign Reading Time Taken Comments Blood Pressure 124/83 03/04/2024 3:35 PM NIGHT CUSTODIAN Pulse 63 03/04/2024 3:35 PM NIGHT CUSTODIAN Temperature 36.3 C (97.3 F) 03/04/2024 3:35 PM NIGHT CUSTODIAN Respiratory Rate 18 03/04/2024 3:35 PM NIGHT CUSTODIAN Oxygen Saturation 96% 03/04/2024 3:35 PM NIGHT CUSTODIAN Inhaled Oxygen Concentration - - Weight 49.9 kg (110 lb) 01/06/2025 11:10 AM CDT Height 160 cm (5' 3) 01/06/2025 11:10 AM CDT Body Mass Index 19.49 01/06/2025 11:10 AM CDT Plan of Treatment Upcoming Encounters Date Type Department Care Team (Late st Contact Info) Description 04/21/2025 11:00 AM NIGHT CUSTODIAN [facility] [address] [address] Johnnie Wan, DPM [address] [place] [address] Health Maintenance Due Date Last Done Comments Colorectal Cancer Screening Colonoscopy (10 Years) 1952 Hepatitis C 1970 Pneumococcal Vaccine: 50+ Years (1 of 2 - PCV) 12/04/1971 Zoster Vaccines (1 of 2) 2002 Annual Medicare Wellness Visit 2017 COVID-19 Vaccine (1 - 2023-2 5 season) 2024 Mammogram Screening 07/16/2025 07/17/2023, 01/14/2020 RSV Immunization or 60+ Years (1 - 1-dose 75+ series) 12/04/2027 DTaP, Tdap and Td Vaccines ( 3 - Td or Tdap) 10/10/2032 10/10/2022, 04/18/2014 Dexa Scan (General) Completed 07/17/2023 Meningococcal B Vaccine Aged Out No l onger eligible based on patient's age to complete this topic Meningococcal Vaccine Aged Out No ajc judy eligible based on patient's age to complete this topic RSV Immunizations Under 20 Months Aged Out No longer eligible b ased on patient's age to complete this topic Goals Goal Patient Goal Type Associated Problems Recent Progress Patient-Stated? Author Safety Patient/family will have appropriate support at home upon discharge Lifestyle No Sharri Morataya RN Medical Devices Implanted Type Area Staff Appraiser Device Identifier Shelf Expiration Date Model / Serial / Lot Kit Internal Brace Hand & Wrist Lig Augment Repair - [id number] Implanted:Qty : 1 on 03/04/2024 by Tristan Chan MD at [facility] Pearson Right: Hand [employer] 09/11/2028 [id number] / / Graft Bone Allosource Canc Crushed Fd 5ml - [id number] Implanted:Qty : 1 on 03/04/2024 by Tristan Chan MD at [facility] Bone Right: Hand [employer] 06/09/2028 [id number] / / Component Maui 20 - [id number] Implanted:Qty : 1 on 03/04/2024 by Tristan Chan MD at [facility] Finger Right: Hand [employer] 07/13/2025 [id number] / / [id number] Mesh Parietex Rigid 15cm X 10cm - [id number] Implanted:Qty : 1 on 07/09/2022 by Marcio Luke DO at [facility] Mesh Left: Inguinal [employer] [id number] 03/13/2026 [id number] / / [id number] K Wire Eva 6 In X .045 In - Sn/A Implanted:Qty : 1 on 09/05/2020 by Johnnie Wan DPM at [facility] Wire Right: Foot [employer] [id number] 12/04/2029 [id number] / N/A / [id number] K Wire Eva 6 In X .045 In - Sn/A Implanted:Qty : 1 on 09/05/2020 by Johnnie Wan DPM at [facility] Wire Right: Foot [employer] [id number] 02/06/2030 [id number] / N/A / [id number] Screw Synthes 2.0 Cortex Self Tap 12mm - Sn/A Implanted:Qty : 3 on 09/05/2020 by Johnnie Wan DPM at [facility] Right: Foot SYNTHES 201.812 / N/A / N/A Screw Synthes 2.0 Cortex Self Tap 14mm - Sn/A Implanted:Qty : 1 on 09/05/2020 by Johnnie Wan DPM at [facility] Right: Foot SYNTHES 201.814 / N/A / N/A Explanted Type Area Staff Appraiser Device Identifier Shelf Expiration Date Model / Serial / Lot K Wire Eva 6 In X .062 In - [id number] Explanted:Qty: 2 on 09/05/2020 at [facility] Wire Right: Foot [employer] [id number] 03/25/2030 [id number] / / [id number] Wire Synthes 1.25mm Reinaldo W/Trocar Point 150mm - Sn/A Explanted:Qty: 1 on 09/05/2020 at [facility] Right: Foot SYNTHES 292.12 / N/A / N/A Wire Synthes 1.25mm Reinaldo W/Trocar Point 150mm - Sn/A Explanted:Qty: 2 on 09/05/2020 at [facility] Right: Foot SYNTHES 292.12 / N/A / N/A Drill Bit Synthes 1.5 Qc 85mm - Sn/A Explanted:Qty: 1 on 09/05/2020 at [facility] Right: Foot SYNTHES 310.15 / N/A / N/A Screw Synthes 2.0 Cortex Self Tap 14mm - Sn/A Explanted:Qty: 1 on 09/05/2020 at [facility] Right: Foot SYNTHES 201.814 / N/A / N/A Procedures Procedure Name Priority Date/Time Associated Diagnosis Comments XR HAND LT 3V Routine 12/24/2024 9:10 AM CDT Trigger middle finger of left hand Left hand pain MG SCREENING W AIRAM NAWAF DIGI Routine 07/17/2023 10:41 AM CDT Visit for screening mammogram BONE DENSITY/DEXA Routine 07/17/2023 9:4 7 AM CDT Post-menopausal from Last 3 Months or Most Recently Relevant to Health Maintenance Results * XR HAND LT 3V (12/24/2024 9:10 AM CDT) Anatomical Region Laterality Modality Hand Radiographic Jaqueline ging 12/29/2024 9:27 AM CDT Impressions 12/30/2024 11:16 AM CDT IMPRESSION: 1. No radiographic evidence of acute fracture. 2. Postoperative changes of trapezium appendectomy and tendinous reconstruction with residual degenerative changes. 3. Asymmetric joint space narrowing of the second and third MCP joints, favored to be degenerative. Tiny lucencies in the third metacarpal head are technically indeterminate but favored to represent subcortical cystic change as opposed to small erosions. If there is clinical concern for inflammatory arthropathy. Correlation with inflammatory markers and if necessary MRI should be considered. The attending radiologist has reviewed the image(s) and agrees with the content of this report. Ordered By: CHRISTIANO ARCE Interpreted By: Agus Dorsey MD, 12/29/2024 9:27 AM Narrative 12/30/2024 11:16 AM CDT [place] [id number] [facility] [place] [address] XR HAND LT 3V: 12/24/2024 9:05 AM CLINICAL INDICATION: Left hand pain COMPARISON: Left hand 3 views 07/09/2023 TECHNIQUE: 2 PA, 2 lateral, oblique views of left hand FINDINGS: No radiographic evidence of acute fracture. Postsurgical changes within the first and second metacarpal with surgical fixation button. Partial resection of the trapezium with degenerative changes of the trapezium and trapezoid similar to comparison imaging. There is scattered asymmetric joint space narrowing in the interphalangeal joints. There are scattered subchondral cystic changes notable at the third digit DIP joint, and fifth digit PIP joint. There are subtle lucencies particularly involving the third metacarpal head, favored to represent subcortical cystic changes opposed to small erosions. Aside from partial resection the bones are in gross anatomic alignment. Small prominent focus of calcification along the radial aspect of the fourth middle phalangeal head, favored to represent sequelae of prior injury though hydroxyapatite deposition could have a similar appearance. Procedure Note Adolfo Wadsworth MD - 12/30/2024 [place] [id number] [facility] [place] [address] XR HAND LT 3V: 12/24/2024 9:05 AM CLINICAL INDICATION: Left hand pain COMPARISON: Left hand 3 views 07/09/2023 TECHNIQUE: 2 PA, 2 lateral, oblique views of left hand FINDINGS: No radiographic evidence of acute fracture. Postsurgical changes withinthe first and second metacarpal with surgical fixation button. Partialresection of the trapezium with degenerative changes of the trapezium andtrapezoid similar to comparison imaging. There is scattered asymmetric joint space narrowing in the interphalangealjoints. There are scattered subchondral cystic changes notable at thethird digit DIP joint, and fifth digit PIP joint. There are subtlelucencies particularly involving the third metacarpal head, favored torepresent subcortical cystic changes opposed to small erosions. Aside frompartial resection the bones are in gross anatomic alignment. Smallprominent focus of calcification along the radial aspect of the fourthmiddle phalangeal head, favored to represent sequelae of prior injurythough hydroxyapatite deposition could have a similar appearance. IMPRESSION: 1. No radiographic evidence of acute fracture. 2. Postoperative changes of trapezium appendectomy and tendinousreconstruction with residual degenerative changes. 3. Asymmetric joint space narrowing of the second and third MCP joints,favored to be degenerative. Tiny lucencies in the third metacarpal headare technically indeterminate but favored to represent subcortical cysticchange as opposed to small erosions. If there is clinical concern forinflammatory arthropathy. Correlation with inflammatory markers and ifnecessary MRI should be considered. The attending radiologist has reviewed the image(s) and agrees with thecontent of this report. Ordered By: CHRISTIANO ARCE Interpreted By: Agus Dorsey MD, 12/29/2024 9:27 AM us Christiano Arce FLOAT PHLEBOTOMIST-BC GENERAL IMAGING Final Resu lt * MG [...] 2 - BENIGN FINDING(S) Ordered By: GALE RENEE Interpreted By: Nando Fletcher MD, 07/17/2023 4:43 PM Gale Renee BINDERY LIBRARY TECHNICAL ASSISTANT MAMMO Final Result * BONE DENSITY/DEXA (07/17/2023 9:47 AM CDT) Anatomical Region Laterality Modality Bone Bone Density 07/17/2023 9:56 AM CDT Impressions 07/17/2023 9:58 AM CDT Impression: 1. Within normal limits in the lumbar spine. 2. Consistent with osteopenia in both hips. Ordered By: GALE RENEE Interpreted By: Nando Fletcher MD, 07/17/2023 9:56 [...] osteopenia in both hips. Ordered By: GALE RENEE Interpreted By: Nando Fletcher MD, 07/17/2023 9:56 AM Gale Renee BINDERY LIBRARY TECHNICAL ASSISTANT DEXA Final Result from Last 3 Months or Most Recently Relevant to Health Maintenance Additional Health Concerns Infection Onset Date Last Indicated MRSA Comment:History of MRSA in 2020 in left ear per PAT JURGEN (SB) 02/27/2024 02/27/2024 Insurance MEDICARE MEDICAID MEDICARE MEDICAID Advance Directives * Full Code (Latest Code Status on File) Date Activated Date Inactivated Comments 07/08/2022 10:25 PM 07/10/2022 4:47 PM Care Teams Peach Grower Relationship Specialty Start Date End Date Jayjay Phillips MD [address] [facility] [address] [place] [address] PCP - General FAMILY PRACTICE 11/25/18
== END 2025-01-12 11:22 | disposition home or self-care (01) ==
LOC: CHSIMG 11:25
PROVIDERS: PCP Family Medicine
DX: M54.50 Low back pain, unspecified (principal); M54.6 Pain in thoracic spine; M54.2 Cervicalgia; M25.551 Pain in right hip; M25.552 Pain in left hip
CPT/HCPCS: 72040; 72072; 72110; 73521